=== PATIENT | female | born 1970 | race Caucasian/White ===

== ENCOUNTER 2024-07-09 10:08 | Observation (INO) ==
[2024-07-09] MEDS ORDERED: Tranexamic Acid 1 GM/100ML BAG 2,000 MG/200 ML BAG IV ONE (10:16)
[2024-07-09] MEDS ORDERED: ceFAZolin 2 GM PREMIX 2 GM/50 ML BAG ONE (10:16)
[2024-07-09] MEDS ORDERED: fentaNYL 100 mcg/2 ml 50 MCG/ML VIAL IV PRN (10:30)
[2024-07-09] MEDS ORDERED: Naloxone 0.4 mg VIAL 0.4 mg/ml 1 ml VIAL IV PRN (10:30)
[2024-07-09] MEDS ORDERED: Metoclopramide 5 MG/ML VIAL (10 mg) IV PRN (10:30)
[2024-07-09] MEDS ORDERED: Ondansetron 4 mg VIAL 2 MG/ML 2 ml VIAL IV PRN ×2 (10:30→14:23)
[2024-07-09] MEDS ORDERED: Lidocaine 2% PF 5 ML VIAL ONE (10:45)
[2024-07-09] MEDS ORDERED: Midazolam 2 mg/2 ml VIAL 1 mg/ml 2 ml VIAL (2 mg) ONE ×3 (10:45→11:11)
[2024-07-09] MEDS ORDERED: fentaNYL 100 mcg/2 ml 50 MCG/ML VIAL ONE ×3 (10:45→13:00)
[2024-07-09 10:52] LABS: Rapid COVID-19 Molecular Undetected (Undetected)
[2024-07-09] MEDS ORDERED: NS 0.45% 1000 ml BAG 1,000 ML IV SCH (11:00)
[2024-07-09] MEDS ORDERED: Dexamethasone IV 4 MG/ML VIAL 1 ml VIAL ONE ×2 (11:02)
[2024-07-09] MEDS ORDERED: Ondansetron 4 mg VIAL 2 MG/ML 2 ml VIAL ONE (11:02)
[2024-07-09] MEDS ORDERED: ROPIVACAINE 5 MG/ML 30 ML BTL (0.5%) ONE (11:11)
[2024-07-09] MEDS ORDERED: Scopolamine 1 mg/72hr PATCH ONE (11:36)
[2024-07-09] MEDS: Scopolamine 1 mg/72hr PATCH TRANSDERM ONE (11:38)
[2024-07-09] MEDS ORDERED: Phenylephrine 40 mcg/mL 10mL (400mcg) SYRINGE ONE (13:09)
[2024-07-09] MEDS ORDERED: Propofol 10 MG/ML 20 ML BTL ONE (13:22)
[2024-07-09] MEDS ORDERED: Phenylephrine IV 10 MG/ML 1 ml VIAL ONE (13:34)
[2024-07-09] MEDS ORDERED: Lactulose 30 ml UDC PO PRN (14:23)
[2024-07-09] MEDS ORDERED: Morphine 2 MG/ML SYRINGE IV PRN (14:23)
[2024-07-09] MEDS ORDERED: Magnesium Hydroxide LIQ 30 ML UDC PO PRN (14:23)
[2024-07-09] MEDS ORDERED: Calcium Carb (TUMS) 500 mg CHEW TAB PO PRN (14:23)
[2024-07-09] MEDS ORDERED: Ondansetron ODT 4 mg TAB 4 MG TAB PO PRN (14:23)
[2024-07-09] MEDS: Lactated Ringers 1000 ml BAG 1,000 ML IV SCH ×2 (16:50→23:19)
[2024-07-09] MEDS: Buffered Lidocaine 1% SYRIN 1 ml INTRADERM ONE (19:27)
[2024-07-09] MEDS: Acetaminophen IV 1 GM/100ML 1,000 MG/100 ML BAG IV ONE (19:27)
[2024-07-09] MEDS: Magnesium Hydroxide LIQ 30 ML UDC PO SCH (19:57)
[2024-07-09] MEDS: ceFAZolin 2 GM PREMIX 2 GM/50 ML BAG IV SCH (19:57)
[2024-07-10 07:04] LABS: Hematocrit 32.1 % (35-45); Platelet Count 265 10^3/uL (150-450)
[2024-07-10 07:08] LABS: Calcium 8.9 mg/dL (8.6-10.3); Creatinine, Serum 0.65 mg/dL (0.51-0.95); Potassium 4.2 mmol/L (3.5-5.0); eGFR CKD-EPI 105.2 (>60)
[2024-07-10] MEDS: Vitamin THERAPEUTIC TAB PO SCH (10:36)
[2024-07-10 14:37] VITALS: BP 114/67
== END 2024-07-10 16:50 | disposition home or self-care (01) ==
LOC: OR 10:08 → SSU 10:08 → EDSTATUS 10:45
PROVIDERS: ADMIT Orthopaedic Surgery Adult Reconstructive Orthopaedic Surgery; ATTEND Orthopaedic Surgery Adult Reconstructive Orthopaedic Surgery